=== PATIENT | male | born 1960 | race Caucasian/White ===

== ENCOUNTER 2025-01-01 09:58 | Outpatient (AMB) | payer OTHER, SELFPAY ==
--- NOTE | 2025-01-01 10:05 | MHC.PC.OV ---
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: No Accompanied by: Self / Same As Patient Allergies cefuroxime [From Ceftin] Allergy (Mild, Verified 01/01/25 10:38) Hives Medication List - Last Reconciled 01/03/25 by KYLAH Spears lisinopril 5 mg PO DAILY Tobacco use date assessed: 01/01/25 Dental Screening Dental Screen Date: 01/01/25 Did you have a dental visit in the last 12 months?: No Did you have a dental problem in the last 6 months where you did not have access to dental care?: No Was dental information given to patient?: Patient has dentist 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 HPI Details Previous PCP: Fabrizio Oquendo, in [place], [place] Last visit:3 year Last PE: same Specialist: no OBGYN:n/a Past medical history: Hernia right groin surgery 5 or so years ago, prostate procedure 2021, prostatic artery embolization, diagnosed with BPH, needs to see urology, reports that he urinates often, but does not thinks it is related to the prostate, he loss elasticity in his bladder Medications: no Family HX: no Problem: The patient is a 64-year-old male was presenting to establish care Patient blood pressure is elevated, rechecked blood pressure 144/98 Patient reports that his blood pressure always has been good He reports drinking coffee about 3-1/2 hours ago-which should not be having much effect on blood pressure at this time We will start the patient on lisinopril 5 mg and have him return in a week Reports frequent urination: Post prostatic artery embolization 2021. The patient reports that he does not think his urinary symptom is related to the prostate; he thinks that his bladder has lost its elasticity-he wants to be referred to Urology at [facility] (Dr Josh Sales, the patient reports that he changed his insurance just so he could be seen by this doctor) He also wants to be scheduled for a colonoscopy-will refer the patient to GI He has a umbilical hernia for a while, sticks out, only if he eats too much, but it usually does not bothers him Right neck mole-reports recurrent moles that have to be removed by Dermatology We will refer the patient for evaluation [facility] Medical History (Updated 01/03/25 @ 11:45 by KYLAH Spears) Skin mole Umbilical hernia BPH (benign prostatic hyperplasia) Surgical History (Updated 01/03/25 @ 11:45 by KYLAH Spears) History of prostate surgery Family History Other Heart failure Stomach cancer Social History Housing: House Patient Tobacco Use Status: Former Tobacco user e-Cigarette/Vaping Use: Never Used Second Hand Smoke Exposure: No service: No Current occupational status: retired Current occupational exposures/hazards: No Cognitive needs: No Hearing needs: No Vision needs: Yes Questionnaire PHQ-9 Over the last 2 weeks, how often have you been bothered by any of the following problems? 1. Little interest or pleasure in doing things: not at all 2. Feeling down, depressed, or hopeless: not at all 3. Trouble falling or staying asleep, or sleeping too much: not at all 4. Feeling tired or having little energy: not at all 5. Poor appetite or overeating: not at all 6. Feeling bad about yourself - or that you are a failure or have let yourself or your family down: not at all 7. Trouble concentrating on things, such as reading the newspaper or watching television: not at all 8. Moving or speaking so slowly that other people could have noticed. Or the opposite - being so fidgety or restless that you have been moving around a lot more than usual: not at all 9. Thoughts that you would be better off or of hurting yourself in some way: not at all Total score: 0 Source: Developed by Drs. Willie Mayer, Darline Mark, Fabian Fitch and colleagues, with an educational andrew from [employer]. Thrive Questionnaire Date Thrive assessed: 01/01/25 I am a: Patient What is your living situation today?: I have a steady place to live Within the past 12 months, did the food you bought not last and you didn't have the money to get more?: Never true Within the past 12 months, did you worry whether your food would run out before you got money to buy more?: Never true Do you have trouble paying for medicines?: No Do you have trouble getting transportation to medical appointments?: No Do you have trouble paying your heating and electricity bill?: No Do you have trouble taking care of your child, family member or friend?: No Do you have trouble with day-to-day activities such as bathing, preparing meals, shopping, managing finances, etc.?: No Are you currently unemployed and looking for a job?: No Are you interested in more education?: I choose not to answer this question Please select the resources that you would like help with: None Currently or been in a relationship where the following occur: No concerns reported THRIVE Score: 0 AUDIT C Alcohol Use Questionnaire (AUDIT-C) 1. How often do you have a drink containing alcohol?: Never 3. How often do you have six or more drinks on one occasion?: Never Total Score: 0 BUD-7 AMB Questionnaire BUD-7 Date BUD - 7 assessed: 01/01/25 Feeling nervous, anxious, or on edge: 0 = Not at all Not being able to stop or control worryin = Not at all Worrying too much about different things: 0 = Not at all Trouble relaxin = Not at all Being so restless that it is hard to sit still: 0 = Not at all Becoming easily annoyed or irritable: 0 = Not at all Feeling afraid as if something awful might happen: 0 = Not at all Total BUD-7 score (0-4 normal; 5-9 mild; 10-14 moderate; 15-21 severe): 0 Source: Developed by Drs. Willie Mayer, Darline Mark, Fabian Fitch and colleagues, with an educational andrew from [employer]. Review of Systems Const Details: Denies chills, Denies fatigue, Denies fever(s), Denies headache(s) and Denies weakness HEENT Denies change in vision, Denies dizziness, Denies headache(s), Denies hearing loss, Denies nasal congestion, Denies sinus pain, Denies sinus pressure and Denies sore throat Card Denies chest pain, Denies lightheadedness, Denies dyspnea and Denies other (palpitations) Resp Denies cough, Denies dyspnea and Denies wheezing GI Denies abdominal pain, Denies melena, Denies hematochezia, Denies change in bowel habits, Denies dyspepsia and Denies nausea, chronic umbilical hernia Denies hematuria and Denies dysuria, + urinary frequency Musc Denies abnormal gait, Denies myalgias, Denies arthralgias, Denies numbness and Denies tingling Skin/Breast Denies rash, Denies unusual bruising and Denies wounds, recurrent skin moles Neuro Denies abnormal gait, Denies dizziness, Denies headache(s), Denies memory loss, Denies numbness, Denies Sensory deficit (Neuro), Denies tingling and Denies weakness Psych Denies anxiety, Denies depression and Denies memory loss Endo Denies cold intolerance, Denies fatigue, Denies heat intolerance, Denies polydipsia and Denies polyuria Rob/Lymph Denies easy bleeding and Denies easy bruising Aller/Immun Denies wheezing Physical exam (Primary Care) Vital Signs: Last Vital Signs Pulse 84 01/01/25 10:07 BP 140/98 H 01/01/25 10:07 Pulse Ox 97 01/01/25 10:07 Oxygen Delivery Method Room Air 01/01/25 10:07 BMI result Body Mass Index 31.2 Tobacco/Smoking Status: Tobacco use Status Tobacco use date assessed 01/01/25 01/01/25 10:13 Patient Tobacco Use Status Former Tobacco user 01/01/25 10:13 e-Cigarette/Vaping Use Never Used 01/01/25 10:13 PHQ-9: PHQ-9 Score PHQ-9: Total score 0 01/01/25 10:49 Thrive Assessment: Date of Thrive Assessment Date Thrive assessed 01/01/25 01/01/25 10:13 Currently or been in a relationship where the following occur: No concerns reported Const Other: General: no acute distress, well developed, alert and awake Nutritional Appearance: well nourished Orientation/consciousness: patient oriented x3 HENMT Head: Yes normocephalic and Yes atraumatic Ears: hearing grossly normal bilaterally and TM's normal bilaterally General nose exam: Normal external nose present and Normal nares present Mouth: Normal oral and palatal mucosa present and moist mucous membranes Teeth and gingiva: dentition normal Throat: Yes oropharynx normal Eyes Pupils: Equal, round and reactive pupils present and Pupil accommodation reflex normal EOM: EOMs intact bilaterally Neck Neck: Yes normal visual inspection, Yes no lymphadenopathy and Yes trachea midline Thyroid: Thyroid normal Lymphatic: no lymphadenopathy noted Resp Effort & Inspection: normal respiratory effort Auscultation: clear to auscultation bilaterally Cardio Rate: regular rate Rhythm: regular rhythm Heart sounds: S1 normal heart sound present, S2 normal heart sound present, no gallops, no murmurs and no rubs GI Palpation (GI): Abdomen is soft nontender to palpation, umbilical hernia present Auscultation: normal bowel sounds General: Yes no CVA tenderness Skin General: warm and dry. Normal skin color. Normal skin turgor Lesions: right side of neck dark, brown nevi present Rashes: no rashes Trauma: no lacerations or abrasions Wounds: no wounds Nails: normal Neuro General: patient oriented x3, gait normal Cranial nerves: Yes Equal, round and reactive pupils present Cognition (Neuro): normal cognition Gait exam (Neuro): Normal gait present Extrem General: Yes normal to inspection, No edema and No calf tenderness Psych Appearance: grossly normal Affect: normal affect Attitude: cooperative Thought process: Normal thought process present Coding Level of Care Code New Pt Level 4 (91036) Diagnoses Skin mole D22.9 Urinary frequency R35.0 Elevated blood pressure reading R03.0 Umbilical hernia without obstruction and without gangrene K42.9 Obstruction and gangrene presence: without obstruction or gangrene Encounter for colorectal cancer screening Z12.11; Z12.12 Time Spent (min) 38 Assessment & Plan Assessment & Plan (1) Skin mole: Code(s): D22.9 - Melanocytic nevi, unspecified Category: Medical Plan: hx of recurrent nevi that had to be removed by dermatology. Will refer the patient for evaluation and possible removal (2) Urinary frequency: Code(s): R35.0 - Frequency of micturition Category: Medical Plan: Reports hx of BPH, post prostatic artery embolization in 2021. Reports that he does not think his symptom is related to the prostate. Reports that he thinks that his bladder has lost its elasticity. The patient wants to be referred to Urology (Dr. Josh Sales) at [facility] (3) Elevated blood pressure reading: Code(s): R03.0 - Elevated blood-pressure reading, without diagnosis of hypertension Category: Medical Plan: Blood pressure was elevated in office. Rechecked bp was also elevated at 144/98. Reports drinking coffee about 3 hours ago. He denies using much salt in his diet. Will start the patient on lisinopril 5 mg and have him return in 1 week for evaluation (4) Umbilical hernia: Code(s): K42.9 - Umbilical hernia without obstruction or gangrene Category: Medical Qualifiers: Obstruction and gangrene presence: without obstruction or gangrene Qualified Code(s): K42.9 - Umbilical hernia without obstruction or gangrene Plan: He has a umbilical hernia for a while, sticks out, only if he eats too much, but it usually does not bothers him. Will monitor for now, consider referring to general surgery in the future. (5) Encounter for colorectal cancer screening: Code(s): Z12.11 - Encounter for screening for malignant neoplasm of colon; Z12.12 - Encounter for screening for malignant neoplasm of rectum Category: Medical Plan: He is due for colonoscopy, will refer to GI Orders: Orders Lipid Panel 01/01/25 Z00.00 - Encounter for general adult medical examination without abnormal findings UA CC w/rflx Micro + Cult 01/01/25 Z00. - Encounter for general adult medical examination without abnormal findings Glucose Fasting 01/01/25 Z00. - Encounter for general adult medical examination without abnormal findings Complete Blood Count Auto Diff 01/01/25 Z00. - Encounter for general adult medical examination without abnormal findings Comprehensive [place]. Panel Fast 01/01/25 Z00. - Encounter for general adult medical examination without abnormal findings TSH reflex Free T4 01/01/25 Z00. - Encounter for general adult medical examination without abnormal findings Vitamin D 25-OH Total 01/01/25 Z00. - Encounter for general adult medical examination without abnormal findings PSA,Total (Free>4and<10) 01/01/25 Z00. - Encounter for general adult medical examination without abnormal findings Referrals Dermatology Referral D22.9 - Melanocytic nevi, unspecified Urology Referral N40.0 - Benign prostatic hyperplasia without lower urinary tract symptoms, R35.0 - Frequency of micturition, Z98.890 - Other specified postprocedural states Gastroenterology Referral Z12.11 - Encounter for screening for malignant neoplasm of colon, Z12.12 - Encounter for screening for malignant neoplasm of rectum Medications: New lisinopril 5 mg PO DAILY 30 tabs 0RF
[2025-01-01 10:07] VITALS: BP 140/98; PULSE 84; O2SAT 97; BMI 31.2
--- OUTSIDE RECORDS SUMMARY | 2025-01-01 11:02 | XMS_ITS | Patient Health Record ---
Author Organization [facility] Address [address] [place] [address] Care Team Providers Care Jira Administrator Name Role Phone Azra FINLEY, Fabrizio Primary Care Provider IVY Willingham Unavailable [phone] Allergies Allergen (clinical drug ingredient) Drug/Non Drug Allergy documented on EMR Reaction Allergy Type Onset Date Status ciprofloxacin Cipro Unknown Drug Allergy Act rick Reason For Referral No Information Medications Medication SIG (Take, Route, Fr equency, Duration) Notes Start Date End Date Status Tylenol 325 MG 1 tablet as needed O rally every 4 hrs Active Ibuprofen Unknown Social History Tobacco Use: Social History Observation Description Date Details (start date - stop date) Never Smoker NA - NA Tobacco Use/Smoking Question Answer Notes Current Smoking Status: nonsmoker Alcohol Screen (Audit-C) Question Answer Notes Did you have a drink containing alcohol in the p ast year? Yes Points 0 Interpretation Negative Problems Problem Type SNOMED Code ICD Code Onset Dates Problem Status W/U Status Risk Notes Problem [id number] Arthritis of right hand (M19.041) Active confirmed Problem [id number] Laceration of right index finger without foreign body without damage to nail, initial encounter (S61.210A) Active confirmed Plan Of Treatment No Information Insurance Providers Payer Name Payer Address Payer Phone Subscriber Number Group Number Insured Name Patient Relationship to Insured Coverage Start Date Coverage End Date [facility] [address] [place] [address] [phone] [id number] Vince Mark Self - patient is the insured Medical (General) History Surgical History Surgery Date(Month/Year) Hernia Repair 3+ years ago Hospitalization History Reason Date(Month/Year) see above
== END 2025-01-01 11:17 | disposition home or self-care (01) ==
DX: D22.9 Melanocytic nevi, unspecified (principal); R35.0 Frequency of micturition; R03.0 Elevated blood-pressure reading, without diagnosis of hypertension; K42.9 Umbilical hernia without obstruction or gangrene; Z12.11 Encounter for screening for malignant neoplasm of colon; Z12.12 Encounter for screening for malignant neoplasm of rectum

== ENCOUNTER 2025-01-08 10:13 | Outpatient (AMB) | payer OTHER, SELFPAY ==
[2025-01-08 10:15] VITALS: BP 128/82; PULSE 66; RESP 18; TEMP 37.1; O2SAT 96; BMI 30.6
--- NOTE | 2025-01-08 10:15 | MHC.PC.OV ---
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 He denies any adverse reaction from medication Patient denies any shortness of breath, chest pain, heart palpitation or dizziness Elevated blood pressure: 128/82 in office. Reports that he did not take his medication as yet because he is planning on getting his blood work done today. Reports that at home he has been getting 114/60-70s. Denies feeling dizziness or lightheaded Treatment: Lisinopril 5 mg daily, will decreased medication to lisinopril 2.5 mg daily. Continue to monitor blood pressure. The patient will return in 6 weeks for annual physical Reinforced low-salt diet [facility] Medical History (Updated 01/03/25 @ 11:45 by KYLAH Spears) Skin mole Umbilical hernia BPH (benign prostatic hyperplasia) Surgical History History of prostate surgery Family History Other Heart failure Stomach cancer Social History Housing: House Patient Tobacco Use Status: Former Tobacco user e-Cigarette/Vaping Use: Never Used Second Hand Smoke Exposure: No service: No Current occupational status: retired Current occupational exposures/hazards: No Cognitive needs: No Hearing needs: No Vision needs: Yes Questionnaire Thrive Questionnaire Date Thrive assessed: 01/01/25 I am a: Patient What is your living situation today?: I have a steady place to live Within the past 12 months, did the food you bought not last and you didn't have the money to get more?: Never true Within the past 12 months, did you worry whether your food would run out before you got money to buy more?: Never true Do you have trouble paying for medicines?: No Do you have trouble getting transportation to medical appointments?: No Do you have trouble paying your heating and electricity bill?: No Do you have trouble taking care of your child, family member or friend?: No Do you have trouble with day-to-day activities such as bathing, preparing meals, shopping, managing finances, etc.?: No Are you currently unemployed and looking for a job?: No Are you interested in more education?: I choose not to answer this question Please select the resources that you would like help with: None Currently or been in a relationship where the following occur: No concerns reported THRIVE Score: 0 BUD-7 AMB Questionnaire BUD-7 Date BUD - 7 assessed: 01/01/25 Source: Developed by Drs. Willie Mayer, Darline Mark, Fabian Fitch and colleagues, with an educational andrew from [employer]. Review of Systems Const Details: Denies chills, Denies fatigue, Denies fever(s), Denies headache(s) and Denies weakness Cardiac Denies chest pain, Denies claudication, Denies leg edema, Denies lightheadedness, Denies palpitations, Denies dyspnea, Denies dyspnea on exertion, Denies orthopnea and Denies other (Loss of consciousness) Resp Denies cough, Denies excessive phlegm production, Denies dyspnea, Denies dyspnea on exertion, Denies snoring and Denies wheezing Neuro Denies Abnormal speech present Physical exam (Primary Care) Vital Signs: Last Vital Signs Temp 98.7 F 01/08/25 10:15 Pulse 66 01/08/25 10:15 Resp 18 01/08/25 10:15 BP 128/82 01/08/25 10:15 Pulse Ox 96 01/08/25 10:15 Oxygen Delivery Method Room Air 01/08/25 10:15 BMI result Body Mass Index 30.6 Tobacco/Smoking Status: Tobacco use Status Tobacco use date assessed 01/08/25 01/08/25 10:23 Patient Tobacco Use Status Former Tobacco user 01/08/25 10:23 e-Cigarette/Vaping Use Never Used 01/08/25 10:23 Thrive Assessment: Date of Thrive Assessment Date Thrive assessed 01/01/25 01/08/25 10:23 Currently or been in a relationship where the following occur: No concerns reported Const General: healthy appearing, no acute distress, alert and awake Nutritional Appearance: well nourished Orientation/consciousness: oriented to person, oriented to place and oriented to time HENMT Ears: TM's normal bilaterally General nose exam: Normal nasal mucous membranes and turbinates present Eyes Conjunctivae: conjunctivae normal Sclerae: sclerae normal Pupils: Equal, round and reactive pupils present Neck Neck: Yes no lymphadenopathy and Yes no JVD Thyroid: Thyroid normal Carotids: no bruits Resp Effort & Inspection: normal respiratory effort and not tachypneic Auscultation: no crackles, no rales, no rhonchi and no wheezes Cardio Rate: regular rate Rhythm: regular rhythm Heart sounds: S1 normal heart sound present, S2 normal heart sound present, no murmurs, no rubs and normal S1 and S2 GI Palpation (GI): Soft to palpation, nontender, no hepatomegaly and no splenomegaly Auscultation: normal bowel sounds Neuro General: oriented to person, oriented to place and oriented to time Cranial nerves: Yes Equal, round and reactive pupils present Speech: No Abnormal speech present Gait exam (Neuro): Normal gait present Motor exam (neuro): no tremor noted Extrem General: Yes capillary refill normal, Yes no pedal edema and Yes no calf tenderness Right upper extremity: full ROM Left upper extremity: full ROM Right lower extremity: full ROM; no edema Left lower extremity: full ROM; no edema Psych Mental Status: mental status grossly normal Speech and movement: Normal speech and movement present Affect: normal affect Attitude: cooperative Thought process: Normal thought process present Coding Level of Care Code Est Pt Level 2 (79950) Diagnoses Elevated blood pressure reading R03.0 Time Spent (min) 29 Assessment & Plan Assessment & Plan (1) Elevated blood pressure reading: Code(s): R03.0 - Elevated blood-pressure reading, without diagnosis of hypertension Category: Medical Plan: Elevated blood pressure: 128/82 in office. Reports that he did not take his medication as yet because he is planning on getting his blood work done today. Reports that at home he has been getting 114/60-70s. Denies feeling dizziness or lightheaded Treatment: Lisinopril 5 mg daily, will decreased medication to lisinopril 2.5 mg daily. Continue to monitor blood pressure. The patient will return in 6 weeks for annual physical Reinforced low-salt diet Medications: New lisinopril 2.5 mg PO DAILY 30 tabs 2RF On Hold lisinopril Hold Comment: Doctor's Order 5 mg PO DAILY 30 tabs 0RF
--- OUTSIDE RECORDS SUMMARY | 2025-01-08 11:28 | XMS_ITS | Patient Health Record ---
Author Organization [facility] Address [address] [place] [address] Care Team Providers Care Supply Chain Assistant Name Role Phone Azra FINLEY, Fabrizio Primary Care Provider IVY Willingham Unavailable [phone] Allergies Allergen (clinical drug ingredient) Drug/Non Drug [...] Problem Status W/U Status Risk Notes Problem [id number] Arthritis of right hand (M19.041) Active confirmed Problem [id number] Laceration of right index finger without foreign body without damage to nail, initial encounter (S61.210A) Active confirmed Plan Of Treatment No Information Insurance Providers Payer Name Payer Address Payer Phone Subscriber Number Group Number Insured Name Patient Relationship to Insured Coverage Start Date Coverage End Date [facility] [address] [place] [address] [phone] [id number] Vince Mark Self - patient is the insured Medical (General) History Surgical History Surgery Date(Month/Year) Hernia Repair 3+ years ago Hospitalization History Reason Date(Month/Year) see above
== END 2025-01-08 10:51 | disposition home or self-care (01) ==
DX: R03.0 Elevated blood-pressure reading, without diagnosis of hypertension (principal)

== ENCOUNTER 2025-01-08 10:13 | Outpatient (REF) | payer OTHER, SELFPAY ==
[2025-01-08 11:14] LABS: MANUAL DIFF FLAG NO
[2025-01-08 11:50] LABS: Basophils Absolute Auto 0.1 X10*3/uL (0.0-0.2); Basophils Percent Auto 0.8 % (0-2); Eosinophils Absolute Auto 0.2 X10*3/uL (0.0-0.4); Eosinophils Percent Auto 2.7 % (0-4); Hematocrit 46.1 % (42.0-52.0); Hemoglobin 15.6 g/dl (14.0-18.0); Imm Gran Abs Auto 0.03 X10*3/uL (0.00-0.03); Imm Gran Pct Auto 0.4 % (0.0-0.4); Lymphocytes Absolute Auto 2.6 X10*3/uL (1.2-4.9); Mean Corpuscular HGB Conc 33.8 g/dl (31.0-36.0); Mean Corpuscular Hemoglobin 31.3 pg (27.0-33.0); Mean Corpuscular Volume 92.4 fL (80.0-98.0); Mean Platelet Volume 10.6 fL (9.4-12.4); Monocytes Absolute Auto 0.6 X10*3/uL (0.1-1.2); Monocytes Percent Auto 7.7 % (2-11); Neutrophils Absolute Auto 4.4 x10*3/uL (2.0-8.3); Neutrophils Percent Auto 55.4 % (45-73); Platelet Count 267 X10*3/uL (160-400); Red Blood Count 4.99 X10*6/uL (4.60-5.80); Red Cell Distribution Width 13.9 % (11.0-16.0); White Blood Count 7.8 X10*3/uL (4.8-10.8)
[2025-01-08 11:55] LABS: Appearance Urine Clear; Color Urine Dark Yellow; Glucose Urine UA Negative (Negative); Leukocyte Esterase Urine Negative (Negative); Nitrite Urine Negative (Negative); PH 6.5 (5.0-9.0); Urine Blood Negative (Negative); Urine Ketones Trace mg/dL (Negative); Urine Protein Trace mg/dL (Neg-Trace)
[2025-01-08 12:49] LABS: Alanine Aminotransferase 31 U/L (0-40); Albumin Level 4.3 g/dL (3.5-5.0); Alkaline Phosphatase 70 U/L (39-117); Anion Gap 11 (12-20); Aspartate Amino Transferase 27 U/L (5-37); Bilirubin Total 0.6 mg/dL (0.0-1.0); Blood Urea Nitrogen 17 mg/dL (9-16); Calcium 9.6 mg/dL (8.4-10.2); Carbon Dioxide 28 mmol/L (22-29); Chloride 108 mmol/L (96-108); Cholesterol 178 mg/dL (<200); Estimated Glomerular Filt Rate > 60; Glucose Fasting 94 mg/dL (60-99); HDL Cholesterol 41 mg/dL (>40); LDL Cholesterol Calculated 117 mg/dL (<100); Potassium 4.6 mmol/L (3.3-5.1); Sodium 142 mmol/L (135-145); Total Protein 7.4 g/dL (6.5-8.0); Triglycerides 101 mg/dL (<150)
[2025-01-08 13:11] LABS: TSH reflex Free T4 1.24 uIU/mL (0.32-4.0); Vitamin D 25-OH Total 30.4 ng/mL (>30)
[2025-01-08 13:12] LABS: PSA,Total (Free>4and<10) 2.28 ng/mL (0.00-4.00)
== END 2025-01-08 10:14 | disposition home or self-care (01) ==
LOC: HO.LAB 10:13
DX: R03.0 Elevated blood-pressure reading, without diagnosis of hypertension (principal); Z12.5 Encounter for screening for malignant neoplasm of prostate; Z13.6 Encounter for screening for cardiovascular disorders; Z00.00 Encounter for general adult medical examination without abnormal findings
CPT/HCPCS: 36415; 80053; 80061; 81003; 82306; 84153; 84443; 85025

== ENCOUNTER 2025-02-19 10:18 | Outpatient (AMB) | payer OTHER, SELFPAY ==
[2025-02-19 10:35] VITALS: BP 118/74; PULSE 69; RESP 14; TEMP 37.3; O2SAT 95; BMI 29.6
--- NOTE | 2025-02-19 10:35 | A.OFFPC_ITS ---
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: No Accompanied by: Self / Same As Patient Allergies cefuroxime [From Ceftin] Allergy (Mild, Verified 02/19/25 11:07) Hives Medication List - Last Reconciled 02/19/25 by KYLAH Spears acetaminophen (Tylenol) 650 mg PO Q6H PRN lisinopril 2.5 mg PO DAILY Tobacco use date assessed: 02/19/25 Dental Screening Dental Screen Date: 02/19/25 Did you have a dental visit in the last 12 months?: No Did you have a dental problem in the last 6 months where you did not have access to dental care?: No Was dental information given to patient?: No HPI pe HPI Details The patient is a 64-year-old male presenting for annual physical. The patient main concerns today is his essential hypertension and hypercholesterolemia. He has successfully lowered his blood pressure to 118/74 mmHg by reducing his lisinopril dose to 2.5 mg. He has lost approximately 10 pounds via lifestyle changes, attributed to outdoor activities and cessation of alcohol usage since the fall. Lab results indicate normal potassium levels, despite perceived low dietary intake, excellent renal function, and satisfactory liver function tests, with an acceptable PSA and vitamin D levels. The patient's cholesterol management focuses on increasing HDL through omega-3 supplements. During a trial discontinuation of lisinopril, blood pressure readings of 130/90 mmHg were obtained, with concerns about the diastolic value noted. The patient remains motivated to further decrease his reliance on medication via sustained lifestyle improvements. Health Maintenance: - Blood pressure monitoring and management of essential hypertension, with successful reduction in medication dosage. - Weight management through increased ph ysical activities and outdoor work. - Nutritional intake monitoring, particu larly focusing on potassium and omega-3 fatty acids. - Regular exercise including stair machi ne workouts and outdoor tasks. - Vaccination status maintained with flu and COVID vaccination, and tetanus vaccination up-to-date. - Screening and preventive measures sche duled: Colonoscopy planned for May. -due for dental cleaning/examination-wor tariq on finding a new dentist -due for eye exam, reports that he was t old that he had mild cataract developing-will refer him to an computing services director [facility] Medical History (Updated 02/21/25 @ 15:02 by KYLAH Spears) Skin mole Umbilical hernia BPH (benign prostatic hyperplasia) Surgical History History of prostate surgery Family History Other Heart failure Stomach cancer Social History Housing: House Patient Tobacco Use Status: Former Tobacco user e-Cigarette/Vaping Use: Never Used Second Hand Smoke Exposure: No service: No Current occupational status: retired Current occupational exposures/hazards: No Cognitive needs: No Hearing needs: No Vision needs: Yes (Glasses) Questionnaire PHQ-9 Over the last 2 weeks, how often have you been bothered by any of the following problems? 1. Little interest or pleasure in doing things: not at all 2. Feeling down, depressed, or hopeless: not at all 3. Trouble falling or staying asleep, or sleeping too much: not at all 4. Feeling tired or having little energy: not at all 5. Poor appetite or overeating: not at all 6. Feeling bad about yourself - or that you are a failure or have let yourself or your family down: not at all 7. Trouble concentrating on things, such as reading the newspaper or watching television: not at all 8. Moving or speaking so slowly that other people could have noticed. Or the opposite - being so fidgety or restless that you have been moving around a lot more than usual: not at all 9. Thoughts that you would be better off or of hurting yourself in some way: not at all Total score: 0 Depression Screening Interpretation: Negative Depression Screening Done: Yes Source: Developed by Drs. Willie Mayer, Darline Mark, Fabian Fitch and colleagues, with an educational andrew from [employer]. Thrive Questionnaire Date Thrive assessed: 02/19/25 I am a: Patient What is your living situation today?: I have a steady place to live Within the past 12 months, did the food you bought not last and you didn't have the money to get more?: Never true Within the past 12 months, did you worry whether your food would run out before you got money to buy more?: Never true Do you have trouble paying for medicines?: No Do you have trouble getting transportation to medical appointments?: No Do you have trouble paying your heating and electricity bill?: No Do you have trouble taking care of your child, family member or friend?: No Do you have trouble with day-to-day activities such as bathing, preparing meals, shopping, managing finances, etc.?: No Are you currently unemployed and looking for a job?: No Are you interested in more education?: I choose not to answer this question Please select the resources that you would like help with: None Currently or been in a relationship where the following occur: No concerns reported THRIVE Score: 0 AUDIT C Alcohol Use Questionnaire (AUDIT-C) 1. How often do you have a drink containing alcohol?: Never 3. How often do you have six or more drinks on one occasion?: Never Total Score: 0 Score Reviewed/Action Taken: No BUD-7 AMB Questionnaire BUD-7 Date BUD - 7 assessed: 02/19/25 Feeling nervous, anxious, or on edge: 0 = Not at all Not being able to stop or control worryin = Not at all Worrying too much about different things: 0 = Not at all Trouble relaxin = Not at all Being so restless that it is hard to sit still: 0 = Not at all Becoming easily annoyed or irritable: 0 = Not at all Feeling afraid as if something awful might happen: 0 = Not at all Total BUD-7 score (0-4 normal; 5-9 mild; 10-14 moderate; 15-21 severe): 0 Source: Developed by Drs. Willie Mayer, Darline Mark, Fabian Fitch and colleagues, with an educational andrew from [employer]. 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)), Denies joint swelling, Denies numbness and Denies tingling Neuro Denies Abnormal speech present, Denies behavioral changes, Denies vertigo, Denies dizziness, Denies headache(s), Denies loss of vision, Denies memory loss, Denies numbness and Denies tingling Psych Denies anxiety, Denies behavioral changes, Denies depression, Denies memory loss and Denies panic attacks Rob/Lymph Denies easy bleeding and Denies easy bruising Aller/Immun Denies wheezing Physical exam (Primary Care) Vital Signs: Last Vital Signs Temp 99.1 F 02/19/25 10:35 Pulse 69 02/19/25 10:35 Resp 14 02/19/25 10:35 BP 118/74 02/19/25 10:35 Pulse Ox 95 02/19/25 10:35 Oxygen Delivery Method Room Air 02/19/25 10:35 BMI result Body Mass Index 29.6 Tobacco/Smoking Status: Tobacco use Status Tobacco use date assessed 02/19/25 02/19/25 10:46 Patient Tobacco Use Status Former Tobacco user 02/19/25 10:46 e-Cigarette/Vaping Use Never Used 02/19/25 10:46 PHQ-9: PHQ-9 Score PHQ-9: Total score 0 02/19/25 14:54 Depression Screening Interpretation: Negative Thrive Assessment: Date of Thrive Assessment Date Thrive assessed 02/19/25 02/19/25 10:46 Currently or been in a relationship where the following occur: No concerns reported Const General: healthy appearing, no acute distress, alert and awake Nutritional Appearance: well nourished Orientation/consciousness: oriented to person, oriented to place and oriented to time HENMT Ears: TM's normal bilaterally General nose exam: Normal nasal mucous membranes and turbinates present Eyes Conjunctivae: conjunctivae normal Sclerae: sclerae normal Pupils: Equal, round and reactive pupils present Neck Neck: Yes no lymphadenopathy and Yes no JVD Thyroid: Thyroid normal Carotids: no bruits Resp Effort & Inspection: normal respiratory effort and not tachypneic Auscultation: no crackles, no rales, no rhonchi and no wheezes Cardio Rate: regular rate Rhythm: regular rhythm Heart sounds: no murmurs and normal S1 and S2 GI Palpation (GI): Soft to palpation, nontender, no hepatomegaly and no splenomegaly Auscultation: normal bowel sounds Skin General skin exam: no rashes or lesions noted and dry skin Neuro General: oriented to person, oriented to place and oriented to time Cranial nerves: Yes Equal, round and reactive pupils present Speech: No Abnormal speech present Gait exam (Neuro): Normal gait present Motor exam (neuro): no tremor noted Extrem Right upper extremity: full ROM Left upper extremity: full ROM Right lower extremity: full ROM; no edema Left lower extremity: full ROM; no edema Psych Mental Status: mental status grossly normal Speech and movement: Normal speech and movement present Affect: normal affect Attitude: cooperative Thought process: Normal thought process present Results Reviewed Results Reviewed: Laboratory Tests 01/08/25 01/08/25 11:08 11:10 WBC 7.8 RBC 4.99 Hgb 15.6 Hct 46.1 RDW 13.9 Plt Count 267 Sodium 142 Potassium 4.6 Chloride 108 Carbon Dioxide 28 BUN 17 H Creatinine 0.88 Estimated GFR > 60 Fasting Glucose 94 Calcium 9.6 Total Bilirubin 0.6 AST 27 ALT 31 Alkaline Phosphatase 70 Total Protein 7.4 Albumin 4.3 Cholesterol 178 LDL Cholesterol, Calc 117 H HDL Cholesterol 41 Total PSA 2.28 25-OH Vitamin D Total 30.4 TSH 1.24 Urine Color Dark Yellow Urine Appearance Clear Urine pH 6.5 Ur Specific Mcguffey 1.020 Urine Protein Trace Urine Glucose (UA) Negative Urine Ketones Trace Urine Blood Negative Urine Nitrite Negative Ur Leukocyte Esterase Negative Coding Level of Care Code Est Pt Prev Care 40-64y(32067) Diagnoses Annual physical exam Z00.00 Encounter for examination of eyes and vision with abnormal findings Z01.01 Elevated LDL cholesterol level E78.00 Elevated blood pressure reading R03.0 Skin mole D22.9 Time Spent (min) 39 Assessment & Plan Assessment & Plan (1) Annual physical exam: Code(s): Z00.00 - Encounter for general adult medical examination without abnormal findings Category: Medical (2) Encounter for examination of eyes and vision with abnormal findings: Code(s): Z01.01 - Encounter for examination of eyes and vision with abnormal findings Category: Medical (3) Elevated LDL cholesterol level: Code(s): E78.00 - Pure hypercholesterolemia, unspecified Category: Medical (4) Elevated blood pressure reading: Code(s): R03.0 - Elevated blood-pressure reading, without diagnosis of hypertension Category: Medical (5) Skin mole: Code(s): D22.9 - Melanocytic nevi, unspecified Category: Medical Plan The management of essential hypertension will continue at a reduced lisinopril dose, with emphasis on lifestyle modifications such as weight loss and increased physical activity, which have shown favorable results. The approach to hypercholesterolemia includes maintaining omega-3 supplementation to improve HDL cholesterol levels, with scheduled follow-up testing in three months. A proactive lifestyle, including the cessation of alcohol consumption, has positively influenced the patient's overall health metrics. Referral to an computing services director for cataract examination is prepared, and a colonoscopy is scheduled as part of ongoing health maintenance. The patient is enrolled for portal use for efficient tracking and communication regarding his healthcare. Patient was informed and verbally consented to the use of an ambient scribe for clinic note documentation during this visit. Orders: Orders Lipid Panel 3 Months E78.00 - Pure hypercholesterolemia, unspecified Referrals Ophthalmology Referral Z01.01 - Encounter for examination of eyes and vision with abnormal findings, Z12.11 - Encounter for screening for malignant neoplasm of colon, Z12.12 - Encounter for screening for malignant neoplasm of rectum Medications: Refilled lisinopril 2.5 mg PO DAILY 30 tabs 3RF Patient Instructions: - Continue with lisinopril at 2.5 mg daily unless otherwise advised. - Increase physical activity as tolerated; continue regular exercise routines. - Maintain weight loss efforts through a balanced diet and lifestyle changes. - Monitor blood pressure regularly and document readings to track progress. - Follow a diet rich in potassium and omega-3 fatty acids to support overall health. - Schedule and attend the computing services director appointment for a comprehensive eye ex am. - Prepare for the colonoscopy appointment as planned. - Stay updated on vaccinations, including flu and COVID. - Use the patient portal for any questions or significant changes in your health status. - Report any unusual symptoms or concerns, especially sudden changes in blood pressure or vision. - Maintain regular follow-up appointments for monitoring health and medication management.
--- OUTSIDE RECORDS SUMMARY | 2025-02-19 11:12 | XMS_ITS | Patient Health Record ---
Author Organization [facility] Address [address] [place] [address] Care Team Providers Care Biological Science Technician Fish Name Role Phone Azra FINLEY, Fabrizio Primary Care Provider IVY Willingham Unavailable [phone] Allergies Allergen (clinical drug ingredient) Drug/Non Drug [...] Problem Status W/U Status Risk Notes Problem [id number] Arthritis of right hand (M19.041) Active confirmed Problem [id number] Laceration of right index finger without foreign body without damage to nail, initial encounter (S61.210A) Active confirmed Plan Of Treatment No Information Insurance Providers Payer Name Payer Address Payer Phone Subscriber Number Group Number Insured Name Patient Relationship to Insured Coverage Start Date Coverage End Date [facility] [address] [place] [address] [phone] [id number] Vince Mark Self - patient is the insured Medical (General) History Surgical History Surgery Date(Month/Year) Hernia Repair 3+ years ago Hospitalization History Reason Date(Month/Year) see above
== END 2025-02-19 11:36 | disposition home or self-care (01) ==
LOC: HO.HMCH 10:18
DX: Z00.00 Encounter for general adult medical examination without abnormal findings (principal); E78.00 Pure hypercholesterolemia, unspecified; R03.0 Elevated blood-pressure reading, without diagnosis of hypertension; D22.9 Melanocytic nevi, unspecified

== ENCOUNTER → 2025-02-19 10:18 | Outpatient (BNVA) | payer OTHER, SELFPAY | DX: Z13.89 Encounter for screening for other disorder (principal) ==

== ENCOUNTER 2025-05-21 08:34 | Outpatient (AMB) | payer OTHER, SELFPAY ==
--- NOTE | 2025-05-21 08:36 | MHC.PC.OV ---
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 Accompanied by: Self / Same As Patient Allergies cefuroxime (From Ceftin) Allergy (Mild, Verified 05/21/25 08:41) Hives Medication List - Last Reconciled 05/21/25 by KYLAH Spears acetaminophen (Tylenol) 650 mg PO Q6H PRN lisinopril 2.5 mg PO DAILY Tobacco use date assessed: 05/21/25 Fall risk assessment: No Falls in past year Last assessed Fall Risk: 05/21/25 Dental Screening Dental Screen Date: 05/21/25 Did you have a dental visit in the last 12 months?: Yes Did you have a dental problem in the last 6 months where you did not have access to dental care?: No Was dental information given to patient?: Yes HPI hld/htn HPI Details The patient is a 65-year-old male presenting for follow up appointment for hypertension an HLD Patient has been making dietary/lifestyle modification with positive outcome Previously his lisinopril was decreased to 2.5 mg due to improvement in blood pressure The pressure is 126/82 in office today. Patient reports that he has not been taking the lisinopril 2.5 mg times 4 over 5-6 weeks. Patient was unable to complete preordered lipid panel. The patient reports having a median lobe of the prostate, which was identified during a cystoscopy procedure. The urologist initially suggested a full transurethral resection of the prostate (TURP), but after further reading, the patient opted for removal of only the median lobe. The patient experiences recurrent urinary tract infections following cystoscopy procedures. He reports that each time an instrument is introduced through the urethra, he develops an infection, which manifests within two days. The patient insists on receiving a prescription for antibiotics immediately after the procedure to prevent infection. Blood pressure monitoring was discussed as part of preventative care, with a follow-up planned in three months to reassess blood pressure and cholesterol levels. PFSH Medical History (Updated 05/21/25 @ 09:10 by KYLAH Spears) Skin mole Umbilical hernia BPH (benign prostatic hyperplasia) Surgical History History of prostate surgery Family History Other Heart failure Stomach cancer Social History Housing: House Patient Tobacco Use Status: Former Tobacco user e-Cigarette/Vaping Use: Never Used Second Hand Smoke Exposure: No service: No Current occupational status: retired Current occupational exposures/hazards: No Cognitive needs: No Hearing needs: No Vision needs: Yes (Glasses) Questionnaire Thrive Questionnaire Date Thrive assessed: 05/21/25 I am a: Patient What is your living situation today?: I have a steady place to live Within the past 12 months, did the food you bought not last and you didn't have the money to get more?: Never true Within the past 12 months, did you worry whether your food would run out before you got money to buy more?: Never true Do you have trouble paying for medicines?: No Do you have trouble getting transportation to medical appointments?: No Do you have trouble paying your heating and electricity bill?: No Do you have trouble taking care of your child, family member or friend?: No Do you have trouble with day-to-day activities such as bathing, preparing meals, shopping, managing finances, etc.?: No Are you currently unemployed and looking for a job?: No Are you interested in more education?: I choose not to answer this question Please select the resources that you would like help with: None Currently or been in a relationship where the following occur: No concerns reported THRIVE Score: 0 AUDIT C Alcohol Use Questionnaire (AUDIT-C) 3. How often do you have six or more drinks on one occasion?: Never Total Score: 0 BUD-7 AMB Questionnaire BUD-7 Date BUD - 7 assessed: 05/21/25 Source: Developed by Drs. Willie Mayer, Darline Mark, Fabian Fitch and colleagues, with an educational andrew from [employer]. Review of Systems Const Denies body aches, Denies chills, Denies fever(s), Denies headache(s) and Denies poor appetite Eyes Reports no additional complaints ENT Denies dysphagia, Denies dizziness, Denies headache(s) and Denies odynophagia Card Denies chest pain, Denies syncope, Denies edema, Denies irregular heart rhythm, Denies lightheadedness and Denies dyspnea Resp Denies cough and Denies dyspnea GI Denies abdominal pain, Denies constipation, Denies dysphagia, Denies diarrhea, Denies nausea, Denies odynophagia and Denies vomiting Reports no additional complaints Musc Reports no additional complaints and Denies abnormal gait Skin/Breast Reports system reviewed and no additional complaints, except as documented Neuro Denies abnormal gait, Denies dizziness, Denies syncope and Denies headache(s) Psych Reports no additional complaints Physical exam (Primary Care) Vital Signs: Last Vital Signs BP 126/82 05/21/25 08:48 Oxygen Delivery Method Room Air 05/21/25 08:38 BMI result Body Mass Index 29.1 Tobacco/Smoking Status: Tobacco use Status Tobacco use date assessed 05/21/25 05/21/25 08:42 Patient Tobacco Use Status Former Tobacco user 05/21/25 08:42 e-Cigarette/Vaping Use Never Used 05/21/25 08:42 Thrive Assessment: Date of Thrive Assessment Date Thrive assessed 05/21/25 05/21/25 08:42 Currently or been in a relationship where the following occur: No concerns reported Const General: cooperative, healthy appearing, comfortable and no acute distress Orientation/consciousness: patient oriented x3 HENMT Head: Yes normocephalic Ears: hearing grossly normal bilaterally General nose exam: Normal external nose present Eyes General: appearance normal, both eyes and all related structures Conjunctivae: conjunctivae normal Neck Neck: Yes full ROM and Yes no lymphadenopathy Resp Effort & Inspection: normal respiratory effort Auscultation: clear to auscultation bilaterally, no crackles, no rales, no rhonchi and no wheezes Cardio Rate: regular rate Rhythm: regular rhythm Skin General skin exam: no rashes or lesions noted Neuro General: patient oriented x3 Gait exam (Neuro): Normal gait present Extrem General: Yes normal to inspection, Yes full ROM and No edema Psych Affect: normal affect Attitude: cooperative Insight: Good insight present (Psych) Judgement: Good judgement present (Psych) Coding Level of Care Code Est Pt Level 3 (16756) Diagnoses Elevated blood pressure reading R03.0 Elevated LDL cholesterol level E78.00 Benign prostatic hyperplasia, unspecified whether lower urinary tract symptoms present N40.0 Lower urinary tract symptom presence: unspecified whether lower urinary tract symptoms present Time Spent (min) 33 Assessment & Plan Assessment & Plan (1) Elevated blood pressure reading: Code(s): R03.0 - Elevated blood-pressure reading, without diagnosis of hypertension Category: Medical Plan: The blood pressure today is 126/82. He has not taken his lisinopril 2.5 mg for over 5-6 weeks now. He monitors his blood pressure at home. Continues to make dietary and lifestyle modifications. Reinforced we will salt intake. Continue to monitor blood pressure. We will have the patient follow up in 3 months. (2) Elevated LDL cholesterol level: Code(s): E78.00 - Pure hypercholesterolemia, unspecified Category: Medical Plan: No recent labs to compare. The patient last he LDL was 117, the patient was not able to complete preordered lipid panel. We will have the patient complete this prior to his follow up appointment in 3 months. Reinforced low-cholesterol diet and activity as tolerated (3) BPH (benign prostatic hyperplasia): Code(s): N40.0 - Benign prostatic hyperplasia without lower urinary tract symptoms Category: Medical Qualifiers: Lower urinary tract symptom presence: unspecified whether lower urinary tract symptoms present Qualified Code(s): N40.0 - Benign prostatic hyperplasia without lower urinary tract symptoms Plan: Patient has a history of prostate surgery. Ongoing enlarged prostate. Recently had a cystoscopy in [place] that shows that his median lobe of his prostate was enlarged. The patient is scheduled for a TURP on . Reports that he will need a right back from [place] to [place]. Patient was given transportation options. He was also treated prophylactically by the urologist after the procedure for UTI due to his history of recurrent UTI after this procedure.
--- OUTSIDE RECORDS SUMMARY | 2025-05-21 08:36 | XMS_ITS | Clinical Summary ---
Author Organization [facility] Address [address] [facility] [address] [place] [phone] Phone Care Team Providers Care Corner Cutter Name Role Phone Jered Weiner CAST ASSOCIATE Primary Care Provider Allergies Active Allergy Reactions Criticality Noted Date Comments Cefuroxime Axetil 06/02/2022 Ciprofloxacin Unknown 05/11/2023 Medications multivitamins with minerals-iron (THERA-VM) Tab Take 1 tablet by mouth daily. Active acetaminophen (TYLENOL) 500 MG tablet 2 tablets every 6 (six) hours. Active saw palmetto 160 mg Cap 2 capsules. Active lisinopril (PRINIVIL,ZEST RIL) 2.5 MG tablet 01/09/20 25 025 Discontinu ed(No longer taking) sulfamethoxazo le-trimethopri m (BACTRIM DS) 800-160 mg per tablet Take 1 tablet (160 mg of trimethoprim total) by mouth 2 (two) times a day for 7 days. 14 tablet 04/26/20 25 025 Active Problems Problem Noted Date Diagnosed Date Urinary retention 09/01/2020 Assessment & Plan (09/01/2020 11:17 AM EDT): Patient went to urinary retention requiring Coughlin catheter Increase doxazosin to 8 mg Coughlin out voiding Patient exploring prostatic arterial embolization at [facility] Discussed my experience Elevated PSA 03/23/2020 Assessment & Plan (09/01/2020 11:18 AM EDT): Patient to obtain a PSA to confirm in acceptable range Benign prostatic hyperplasia with urinary hesita ncy 03/02/2019 Assessment & Plan (03/23/2020 9:15 AM EDT): Will continue Doxazosin til end of summer Will then reeval with cysto or televisit for TURP in fall Assessment & Plan (03/05/2019 8:46 AM EDT): Stable BPH on Saw [place]o Discussed Alpha Blockers Urolyft unable due to volume 100cc and Middle Lobe Herpes zoster 12/23/2013 Overview (12/24/2014): Shingles; L SIDE OF FOREHEAD Encounters Date Type Department Care Team Description 04/30/2025 Orders Only [facility] Urology [address] [place] [phone] Nat Sharp Benign prostatic hyperplasia with urinary hesitancy (Primary Dx) 04/28/2025 Prep for Surgery [facility] Urology [address] [place] [phone] Josh Sales MD Benign prostatic hyperplasia with urinary hesitancy (Primary Dx) 04/26/2025 1:20 PM EDT Office Visit [facility] Urology [address] [place] [id number] Josh Sales MD Benign prostatic hyperplasia with urinary hesitancy (Primary Dx); Suspected UTI 03/15/2025 Telephone [facility] Urology [address] [place] [phone] Nat Sharp 03/10/2025 4:30 PM EDT Telemedicine [facility] Urology [address] [place] [phone] Josh Sales MD Benign prostatic hyperplasia with urinary hesitancy (Primary Dx); Suspected UTI 03/10/2025 Telephone [facility] Urology [address] [place] [phone] Nat Sharp Desire 03/08/2025 11:00 AM EDT Office Visit [facility] [address] [place] [address] Alia Rosas MD Lower urinary tract symptoms (LUTS) (Primary Dx) from Last 3 Months Immunizations Immunization Administration Dates Next Due Influenza Quadrivalent MDCK Preservative Free IM 09/13/2020 Tdap 06/02/2022 Family History Medical History Relation Comments Prostate cancer Father Stomach cancer Maternal Grandmother Cancer Mother Relation Status Comments Father Alive Maternal Grandmother Mother Alive Social History Tobacco Use Types Packs/Day Years Used Date Smoking Tobacco: Former Cigarettes Tobacco Cessation:Counseling Given: Not Answered Alcohol Use Standard Drinks/Week Comments Yes 4 (1 standard drink = 0.6 oz pur e alcohol) Education Answer Date Recorded Are you interested in more education? Not on vipul e 03/01/2023 Are you concerned about learning? Not on file 03/01/2023 No 03/01/2023 No 03/01/2023 Digital Access Answer Date Recorded No 04/01/2023 No 04/01/2023 Reliable internet access at home? Not on file 04/01/2023 Device with a working camera? Not on file Sex and Gender Information Value Date Recorded Sex Assigned at Not on file Legal Sex Male 7:19 AM EST Gender Identity Not on file Sexual Orientation Not on file Last Filed Vital Signs Vital Sign Reading Time Taken Comments Blood Pressure 129/88 04/26/2025 1:32 PM EDT Pulse 77 04/26/2025 1:32 PM EDT Temperature 36.4 C (97.6 F) 09/28/2023 3:23 PM EST Respiratory Rate 18 09/28/2023 3:23 PM EST Oxygen Saturation 100% 09/28/2023 3:23 PM EST Inhaled Oxygen Concentration - - Weight 86.2 kg (190 lb) 04/26/2025 1:28 PM EDT Height 175.3 cm (5' 9 ) 04/26/2025 1:28 PM EDT Body Mass Index 28.06 04/26/2025 1:28 PM EDT Plan of Treatment Upcoming Encounters Date Type Department Care Team (Latest Contact Info) Description 05/27/2025 Procedure Pass [facility] Periop [address] [place] [address] 05/27/2025 7:30 AM EDT Hospital Encounter [facility] Periop [address] [place] [address] Josh Sales MD [address] [place] [id number] [email or web address] 05/27/2025 7:30 AM EDT - 05/27/2025 9:56 AM EDT Surgery [facility] Periop [address] [place] [address] Josh Sales MD [address] [place] [phone] [email or web address] CYSTOSCOPY TRANSURETHRAL RESECTION PROSTATE 06/14/2025 1:40 PM EDT Office Visit [facility]rology [facility] [address] [address] Allegra Barron PA-C [address] [facility], [place] [address] [email or web address] Scheduled Procedures Name Priority Associated Diagnoses Date/Ti ri CYSTOSCOPY TRANSURETHRAL RESECTION PROSTATE Benign prostatic hyperplasia with urinary hesitancy 05/27/2025 7:30 AM EDT Health Maintenance Due Date Last Done Comments SMOKING Hx and SMOKELESS TOBACCO SCREENING 1974 HEPATITIS C SCREENING 1979 HIV ONE-TIME SCREENING (18-65 YEARS) 1979 SCREENING FOR DIABETES 1996 COLOGUARD 2006 COLONOSCOPY 2006 COLORECTAL CANCER SCREENING 2006 FIT TEST 2006 FOBT 2006 SIGMOIDOSCOPY 2006 VIRTUAL COLONOSCOPY 2006 PNEUMOCOCCAL VACCINES (50+ years) (1 of 1 - PCV) 2011 ZOSTER VACCINES (1 of 2) 2011 COVID-19 VACCINE (2023- season) 2024 09/03/2022, 05/26/2022, 10/05/2021, Additional history exists DEPRESSION SCREENING 01/21/2026 01/21/2025 LIPID PANEL 09/12/2027 09/12/2022, 1107/2022, 03/19/2022, Additional history exists Adult Td,Tdap Booster 06/02/2032 06/02/2022 RSV VACCINE (1 - 1-dose 75+ series) 2036 HEPATITIS A VACCINES Aged Out No long er eligible based on patient's age to complete this topic HIB VACCINES Aged Out No longer eligi ble based on patient's age to complete this topic MENINGOCOCCAL VACCINES (ACWY) Aged Out No longer eligible based on patient's age to complete this topic MENINGOCOCCAL VACCINES (B) Aged Out N o longer eligible based on patient's age to complete this topic Medical Devices Not on file Insurance [employer] [facility] POS EPO [employer] [facility] E[facility] POS EPO [facility] POS EPO [facility] POS EPO [employer] Care Teams Corner Cutter Relationship Specialty Start Date End Date Jered Weiner NP [address] [place] [address] [address] [place] [address] PCP - General 01/14/25 Additional Source Comments The information contained in this document represents components of the legal health record. It is not the complete legal health record.[facility]
--- OUTSIDE RECORDS SUMMARY | 2025-05-21 08:36 | XMS_ITS | Patient Health Record ---
Author Organization [facility] Address [address] [place] [address] Care Team Providers Care Architecture Internship Name Role Phone Azra FINLEY, Fabrizio Primary Care Provider IVY Willingham Unavailable [phone] Allergies Allergen (clinical drug ingredient) Drug/Non Drug [...] Problem Status W/U Status Risk Notes Problem [id number] Arthritis of right hand (M19.041) Active confirmed Problem [id number] Laceration of right index finger without foreign body without damage to nail, initial encounter (S61.210A) Active confirmed Plan Of Treatment No Information Insurance Providers Payer Name Payer Address Payer Phone Subscriber Number Group Number Insured Name Patient Relationship to Insured Coverage Start Date Coverage End Date [facility] [address] [place] [address] [phone] [id number] Vince Mark Self - patient is the insured Medical (General) History Surgical History Surgery Date(Month/Year) Hernia Repair 3+ years ago Hospitalization History Reason Date(Month/Year) see above
[2025-05-21 08:38] VITALS: BP 110/72; PULSE 73; RESP 16; TEMP 37.2; O2SAT 97; BMI 29.1
[2025-05-21 08:48] VITALS: BP 126/82
== END 2025-05-21 09:03 | disposition home or self-care (01) ==
LOC: HO.HMCH 08:35
DX: R03.0 Elevated blood-pressure reading, without diagnosis of hypertension (principal); E78.00 Pure hypercholesterolemia, unspecified; N40.0 Benign prostatic hyperplasia without lower urinary tract symptoms

== ENCOUNTER 2025-08-24 09:07 | Outpatient (AMB) | payer OTHER, SELFPAY ==
[2025-08-24 09:13] VITALS: BP 140/90; PULSE 61; RESP 18; TEMP 36.3; O2SAT 95; BMI 29.8
--- NOTE | 2025-08-24 09:13 | MHC.PC.OV ---
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 Accompanied by: Self / Same As Patient Allergies cefuroxime (From Ceftin) Allergy (Mild, Verified 08/24/25 09:14) Hives Tobacco use date assessed: 08/24/25 Fall risk assessment: 1 Fall in past year Last assessed Fall Risk: 08/24/25 Dental Screening Dental Screen Date: 08/24/25 Did you have a dental visit in the last 12 months?: Yes Did you have a dental problem in the last 6 months where you did not have access to dental care?: No Was dental information given to patient?: Patient has dentist [facility] Medical History Skin mole Umbilical hernia BPH (benign prostatic hyperplasia) Surgical History History of prostate surgery Family History Other Heart failure Stomach cancer Social History Housing: House Patient Tobacco Use Status: Former Tobacco user e-Cigarette/Vaping Use: Never Used Second Hand Smoke Exposure: No service: No Current occupational status: retired Current occupational exposures/hazards: No Cognitive needs: No Hearing needs: No Vision needs: Yes (Glasses) Questionnaire Thrive Questionnaire Date Thrive assessed: 01/01/25 I am a: Patient What is your living situation today?: I have a steady place to live Within the past 12 months, did the food you bought not last and you didn't have the money to get more?: Never true Within the past 12 months, did you worry whether your food would run out before you got money to buy more?: Never true Do you have trouble paying for medicines?: No Do you have trouble getting transportation to medical appointments?: No Do you have trouble paying your heating and electricity bill?: No Do you have trouble taking care of your child, family member or friend?: No Do you have trouble with day-to-day activities such as bathing, preparing meals, shopping, managing finances, etc.?: No Are you currently unemployed and looking for a job?: No Are you interested in more education?: I choose not to answer this question Please select the resources that you would like help with: None Currently or been in a relationship where the following occur: No concerns reported THRIVE Score: 0 BUD-7 AMB Questionnaire BUD-7 Date BUD - 7 assessed: 05/21/25 Source: Developed by Drs. Willie Mayer, Darline Mark, Fabian Fitch and colleagues, with an educational andrew from [employer]. Physical exam (Primary Care) Tobacco/Smoking Status: Tobacco use Status Tobacco use date assessed 05/21/25 05/21/25 08:42 Patient Tobacco Use Status Former Tobacco user 05/21/25 08:42 e-Cigarette/Vaping Use Never Used 05/21/25 08:42 Thrive Assessment: Date of Thrive Assessment Date Thrive assessed 01/01/25 08/22/25 18:55 Currently or been in a relationship where the following occur: No concerns reported Coding
--- NOTE | 2025-08-24 09:25 | MHC.PC.OV ---
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: hld/htn Allergies cefuroxime (From Ceftin) Allergy (Mild, Verified 08/24/25 09:25) Hives Medication List - Last Reconciled 08/24/25 by KYLAH Spears acetaminophen (Tylenol) 650 mg PO Q6H PRN Tobacco use date assessed: 08/24/25 Dental Screening Dental Screen Date: 08/24/25 Did you have a dental visit in the last 12 months?: Yes Did you have a dental problem in the last 6 months where you did not have access to dental care?: No Was dental information given to patient?: Patient has dentist HPI hld/htn HPI Details The patient is a 65-year-old male presenting with hypertension management and recent surgical intervention (PUL) for benign prostatic hyperplasia. The patient reports a history of hypertension with recent home blood pressure readings of 130/82 mmHg, although he expresses concern about the diastolic pressure nearing 90 mmHg. He has been off lisinopril but plans to resume it due to rising blood pressure levels. The patient monitors his diet, particularly salt intake, and engages in regular physical activity, including walking and using a stair climbing machine. The patient underwent a transurethral resection of the prostate (TURP) due to benign prostatic hyperplasia, which involved removing a median lobe growth causing urinary symptoms. He reports significant improvement post-surgery, although he still experiences some sensitivity at the surgical site. [facility] Medical History Skin mole Umbilical hernia BPH (benign prostatic hyperplasia) Surgical History History of prostate surgery Family History Other Heart failure Stomach cancer Social History Housing: House Patient Tobacco Use Status: Former Tobacco user e-Cigarette/Vaping Use: Never Used Second Hand Smoke Exposure: No service: No Current occupational status: retired Current occupational exposures/hazards: No Cognitive needs: No Hearing needs: No Vision needs: Yes (Glasses) Questionnaire Thrive Questionnaire Date Thrive assessed: 01/01/25 I am a: Patient What is your living situation today?: I have a steady place to live Within the past 12 months, did the food you bought not last and you didn't have the money to get more?: Never true Within the past 12 months, did you worry whether your food would run out before you got money to buy more?: Never true Do you have trouble paying for medicines?: No Do you have trouble getting transportation to medical appointments?: No Do you have trouble paying your heating and electricity bill?: No Do you have trouble taking care of your child, family member or friend?: No Do you have trouble with day-to-day activities such as bathing, preparing meals, shopping, managing finances, etc.?: No Are you currently unemployed and looking for a job?: No Are you interested in more education?: I choose not to answer this question Please select the resources that you would like help with: None Currently or been in a relationship where the following occur: No concerns reported THRIVE Score: 0 BUD-7 AMB Questionnaire BUD-7 Date BUD - 7 assessed: 05/21/25 Source: Developed by Drs. Willie Mayer, Darline Mark, Fabian Fitch and colleagues, with an educational andrew from [employer]. Review of Systems Const Denies body aches, Denies chills, Denies fever(s), Denies headache(s) and Denies poor appetite Eyes Reports no additional complaints ENT Denies dysphagia, Denies dizziness, Denies headache(s) and Denies odynophagia Card Denies chest pain, Denies syncope, Denies edema, Denies irregular heart rhythm, Denies lightheadedness and Denies dyspnea Resp Denies cough and Denies dyspnea GI Denies abdominal pain, Denies constipation, Denies dysphagia, Denies diarrhea, Denies nausea, Denies odynophagia and Denies vomiting Reports no additional complaints Musc Reports no additional complaints and Denies abnormal gait Skin/Breast Reports system reviewed and no additional complaints, except as documented Neuro Denies abnormal gait, Denies dizziness, Denies syncope and Denies headache(s) Psych Reports no additional complaints Physical exam (Primary Care) Vital Signs: Last Vital Signs Temp 97.3 F 08/24/25 09:13 Pulse 61 08/24/25 09:13 Resp 18 08/24/25 09:13 BP 140/90 H 08/24/25 09:13 Pulse Ox 95 08/24/25 09:13 Oxygen Delivery Method Room Air 08/24/25 09:13 BMI result Body Mass Index 29.8 Tobacco/Smoking Status: Tobacco use Status Tobacco use date assessed 08/24/25 08/24/25 09:41 Patient Tobacco Use Status Former Tobacco user 08/24/25 09:41 e-Cigarette/Vaping Use Never Used 08/24/25 09:41 Thrive Assessment: Date of Thrive Assessment Date Thrive assessed 01/01/25 08/24/25 09:41 Currently or been in a relationship where the following occur: No concerns reported Const General: cooperative, healthy appearing, comfortable and no acute distress Orientation/consciousness: patient oriented x3 HENMT Head: Yes normocephalic Ears: hearing grossly normal bilaterally General nose exam: Normal external nose present Eyes General: appearance normal, both eyes and all related structures Conjunctivae: conjunctivae normal Neck Neck: Yes full ROM and Yes no lymphadenopathy Resp Effort & Inspection: normal respiratory effort Auscultation: clear to auscultation bilaterally, no crackles, no rales, no rhonchi and no wheezes Cardio Rate: regular rate Rhythm: regular rhythm Heart sounds: S1 normal heart sound present, S2 normal heart sound present and no murmurs GI Palpation (GI): Soft to palpation, nontender and No hepatosplenomegaly present Auscultation: normal bowel sounds General: Yes no CVA tenderness Back/Spine/Pelvis Back: no CVA tenderness Skin General skin exam: no rashes or lesions noted Neuro General: patient oriented x3 Gait exam (Neuro): Normal gait present Extrem General: Yes normal to inspection, Yes full ROM and No edema Psych Affect: normal affect Attitude: cooperative Insight: Good insight present (Psych) Judgement: Good judgement present (Psych) Coding Level of Care Code Est Pt Level 3 (88184) Diagnoses Hypertension, unspecified type I10 Hypertension type: unspecified Benign prostatic hyperplasia, unspecified whether lower urinary tract symptoms present N40.0 Lower urinary tract symptom presence: unspecified whether lower urinary tract symptoms present Elevated LDL cholesterol level E78.00 Time Spent (min) 33 Assessment & Plan Assessment & Plan (1) HTN (hypertension): Code(s): I10 - Essential (primary) hypertension Category: Medical Qualifiers: Hypertension type: unspecified Qualified Code(s): I10 - Essential (primary) hypertension Plan: The patient will resume lisinopril at a dose of 5 mg to manage elevated blood pressure levels. He is advised to continue monitoring his blood pressure at home and maintain a low-salt diet. Follow-up is scheduled in three months to reassess blood pressure control. (2) BPH (benign prostatic hyperplasia): Code(s): N40.0 - Benign prostatic hyperplasia without lower urinary tract symptoms Category: Medical Qualifiers: Lower urinary tract symptom presence: unspecified whether lower urinary tract symptoms present Qualified Code(s): N40.0 - Benign prostatic hyperplasia without lower urinary tract symptoms Plan: The patient underwent TURP to address urinary symptoms caused by a median lobe growth. He reports significant improvement post-surgery, with some residual sensitivity at the surgical site. A follow-up call is expected in September to assess recovery progress. (3) Elevated LDL cholesterol level: Code(s): E78.00 - Pure hypercholesterolemia, unspecified Category: Medical Plan: Triglycerides 109, total cholesterol 184, LDL increased from 117-125, HDL decreased from 41-38. Decreased foods high in cholesterol and increase activity as tolerated. Recommend fish oil to increase HDL. We will continue to monitor Medications: New lisinopril 5 mg PO DAILY 30 tabs 3RF
== END 2025-08-24 09:48 | disposition home or self-care (01) ==
LOC: HO.HMCH 09:08
DX: I10 Essential (primary) hypertension (principal); N40.0 Benign prostatic hyperplasia without lower urinary tract symptoms; E78.00 Pure hypercholesterolemia, unspecified

== ENCOUNTER 2025-08-27 08:06 | Outpatient (REF) | payer OTHER, SELFPAY ==
[2025-08-27 09:13] LABS: Cholesterol 184 mg/dL (<200)
[2025-08-27 09:25] LABS: HDL Cholesterol 38 mg/dL (>40); Triglycerides 109 mg/dL (<150)
== END 2025-08-27 08:07 | disposition home or self-care (01) ==
LOC: HO.LAB 08:06
DX: E78.00 Pure hypercholesterolemia, unspecified (principal)
CPT/HCPCS: 36415; 80061